=== PATIENT | male | born 1995 | race Caucasian/White ===

== ENCOUNTER 2024-04-29 14:11 | Emergency (ER) | payer OTHER ==
[~2024-04-29] VITALS: Ht 170.2 cm; Wt 86.2 kg
[2024-04-29 14:34] VITALS: BP 125/67; PULSE 90; RESP 22; TEMP 97.4; O2SAT 98
[2024-04-29 15:22] VITALS: O2SAT 98
[2024-04-29] MEDS ORDERED: LIDOCAINE 5% 1 EA PATCH TP ONE (15:31)
[2024-04-29] MEDS: methocarbamoL 500 MG TAB PO ONE (15:34)
[2024-04-29] MEDS: ACETAMINOPHEN EXTRA STRENGTH 500 MG TAB PO ONE (15:35)
[2024-04-29] MEDS: LIDOCAINE 5% 1 EA PATCH TP ONE (15:41)
[2024-04-29] MEDS ORDERED: METH-1681 PO (17:31)
[2024-04-29] MEDS ORDERED: NAPR-1704 PO (17:31)
[2024-04-29] MEDS ORDERED: CAPS1ADH5 TP (17:31)
[2024-04-29 17:33] VITALS: BP 125/67; PULSE 90; RESP 22; TEMP 97.4
== END 2024-04-29 17:35 | disposition home or self-care (01) ==
LOC: MED 14:11
DX: S30.0XXA Contusion of lower back and pelvis, initial encounter (principal); Z79.899 Other long term (current) drug therapy; W01.0XXA Fall on same level from slipping, tripping and stumbling without subsequent striking against object, initial encounter; Y92.89 Other specified places as the place of occurrence of the external cause; Y93.89 Activity, other specified; Y99.8 Other external cause status
CPT/HCPCS: 72220; 99284